=== PATIENT | female | born 1960 | race American Indian/Alaskan Native ===

== ENCOUNTER 2021-08-20 05:04 | Emergency (ER) | payer MEDICARE ==
--- NOTE | 2021-08-20 05:12 | Event Note ---
Date: 08/20/21 The patient was evaluated in the emergency department for symptoms described in the history of present illness. He/she was evaluated in the context of the global COVID-19 pandemic, which necessitated consideration that the patient might be at risk for infection with the virus that causes COVID-19. Institutional protocols and algorithms that pertain to the evaluation of patients at risk for COVID-19 are in a state of rapid change based on information released by regulatory bodies including the CDC and federal and state organizations. These policies and algorithms were followed during the patient's care in the emergency department. Please note that these policies, procedures and recommendations changed on a rapid basis. Medical screening examination note: 61-year-old female, with reported history of seizures, not compliant with Keppra, not COVID-19 vaccinated, brought to the hospital by significant other for nontraumatic seizure/convulsion. As per significant other, patient has been intermittently compliant with Keppra since 2012, as she is attempting to treat seizures/convulsions via homeopathic methods. As per significant other, patient was in bed, and had a convulsion today. There was no trauma, and resolved on its own. Significant other got patient dressed, going to car, patient had another convulsion in the car, which terminated spontaneously. In the emergency room, the patient is awake, breathing spontaneously, and moving 4 extremities. Significant other endorses that he has discussed multiple times with patient need to remain compliant with AED therapy. Place patient on shelter monitor. Obtain EKG, laboratory studies, and loaded with 2 g of Keppra. Detailed history and physical to be performed by oncoming ER provider. Significant other does not endorse any additional symptoms or concerns at this time. Patient saturating at 95% on room air at this moment. Accu-Chek 213.
[2021-08-20] MEDS ORDERED: levETIRAcetam 1000 MG/NS 0.75% 1,000 MG/100 ML BAG IV ONE ×2 (05:18→05:49)
[2021-08-20 05:37] LABS: Hematocrit 39.3 % (30.3-42.9); Hemoglobin 12.3 gm/dl (10.1-14.3); Mean Corpuscular HGB Conc 31 % (30-34); Mean Corpuscular Volume 86 fl (79-97); Platelet Count 303 K/mm3 (140-440); Red Blood Count 4.55 M/mm3 (3.65-5.03); Red Cell Distribution Width 13.3 % (13.2-15.2)
[2021-08-20] MEDS ORDERED: ONDANSETRON 4 MG/2 ML INJ ONE (05:42)
[2021-08-20] MEDS ORDERED: ONDANSETRON 4 MG/2 ML INJ IV ONE (05:48)
--- NOTE | 2021-08-20 07:52 | Emergency Department Report ---
ED Seizure HPI - General Chief Complaint: Seizure Stated Complaint: SEIZURES Time Seen by Provider: 08/20/21 06:39 Source: patient, family Mode of arrival: Wheelchair Limitations: No Limitations - History of Present Illness Initial Comments: 61-year-old female with a history of seizure brought in with seizure activity in the last several hours counted to be more than 4 episode. Patient currently takes Keppra and reports that she has been compliant with her medication. No fever or chills reported. Patient was initially screened by previous physician and was started on 1 g of Keppra and routine labs was ordered. Patient reported being a little tired at this point likely postictal. No fever or chills reported. No other modifying or associated factors reported. - Related Data Allergies Allergy/AdvReac Type Severity Reaction Status Date / Time No Known Allergies Allergy Verified 08/20/21 05:31 ED Review of Systems ROS: Stated complaint: SEIZURES Other details as noted in HPI Neurological: other (Seizure) ED Physical Exam - General Limitations: No Limitations General appearance: postictal - Head Head exam: Present: atraumatic, normal inspection - Eye Eye exam: Present: normal appearance Pupils: Present: normal accommodation - ENT ENT exam: Present: normal exam, normal orophraynx, mucous membranes moist - Neck Neck exam: Present: normal inspection, full ROM. Absent: tenderness, meningismus - Respiratory Respiratory exam: Present: normal lung sounds bilaterally, respiratory distress - Cardiovascular Cardiovascular Exam: Present: regular rate, normal rhythm, normal heart sounds - GI/Abdominal GI/Abdominal exam: Present: soft, normal bowel sounds. Absent: distended, tenderness - Extremities Exam Extremities exam: Present: normal inspection, full ROM, normal capillary refill. Absent: tenderness, pedal edema, joint swelling - Back Exam Back exam: Present: normal inspection. Absent: tenderness - Neurological Exam Neurological exam: Present: alert, oriented X3 - Psychiatric Psychiatric exam: Present: normal affect, normal mood - Skin Skin exam: Present: warm, normal color ED Course Vital Signs 08/20/21 08/20/21 08/20/21 05:33 06:06 06:07 Temperature 98 F 97.8 F Pulse Rate 92 H 75 Respiratory 18 13 Rate Blood Pressure 115/83 107/61 [Right] O2 Sat by Pulse 99 96 95 Oximetry 08/20/21 08/20/21 08:16 11:36 Temperature Pulse Rate 80 87 Respiratory 14 14 Rate Blood Pressure 112/62 121/58 [Right] O2 Sat by Pulse 98 99 Oximetry - Reevaluation(s) Reevaluation #1: 08/20/21 08:00 Present with episode of seizure with history of seizure--currently on Keppra we will go ahead and order routine labs including CBC, CMP, UA for any infectious process or electrolyte abnormality--in the meantime we will continue IV hydration-- Reevaluation #2: 08/20/21 12:12 Patient report feeling much better after the treatment. Patient is stable enough to be discharged home to continue medication as prescribed by primary doctor. ED Medical Decision Making - Lab Data Result diagrams: 08/20/21 05:17 08/20/21 05:17 Critical care attestation.: If time is entered above; I have spent that time in minutes in the direct care of this critically ill patient, excluding procedure time. ED Disposition Clinical Impression: Seizure Disposition: 01 HOME / SELF CARE / HOMELESS Is pt being admited?: No Does the pt Need Aspirin: No Condition: Stable Instructions: Seizure, Adult, [id number] Additional Instructions: Increase your daily fluid to help your hydration Continue your antiseizure medicine as prescribed by your neurology and you primary doctor to help your symptoms and prevent breakthrough symptoms Call and schedule follow-up with your primary doctor/neurology in the next 3 to 5 days for progress Please do not hesitate to call or return to emergency if your symptoms worsen Please avoid extreme heat/cold to prevent symptoms recurrence Referrals: SABA VEGA MD [Referring] - 3-5 Days Time of Disposition: 12:15
[2021-08-20 11:38] VITALS: BP 121/58
== END 2021-08-20 12:53 | disposition home or self-care (01) ==
LOC: ED 05:04
DX: G40.909 Epilepsy, unspecified, not intractable, without status epilepticus (principal)
CPT/HCPCS: 36415; 80048; 82550; 85027; 93005; 96374; 96375; 99284; J1953; J2405; 80320; G0480